=== PATIENT | male | born 1960 | race African-American/Black ===

== ENCOUNTER 2018-07-25 01:17 | Emergency (ER) | payer MEDICAID | END 2018-07-25 01:40 | disposition left against medical advice (07) | LOC: ER 01:17 | DX: R68.89 Other general symptoms and signs (principal); Z53.21 Procedure and treatment not carried out due to patient leaving prior to being seen by health care provider ==

== ENCOUNTER 2018-11-22 00:30 | Emergency (ER) | payer MEDICAID ==
[~2018-11-22] VITALS: Ht 175.3 cm; Wt 78.0 kg
[2018-11-22 00:33] VITALS: BP 123/84
== END 2018-11-22 02:10 | disposition left against medical advice (07) ==
LOC: EDBD → ER 00:30
DX: Z53.21 Procedure and treatment not carried out due to patient leaving prior to being seen by health care provider (principal)

== ENCOUNTER 2018-11-22 03:06 | Emergency (ER) | payer MEDICAID | END 2018-11-22 03:42 | disposition left against medical advice (07) | LOC: EDBD → ER 03:06 | DX: Z53.21 Procedure and treatment not carried out due to patient leaving prior to being seen by health care provider (principal) ==

== ENCOUNTER 2018-11-22 04:34 | Emergency (ER) | payer SELFPAY | END 2018-11-22 05:43 | disposition left against medical advice (07) | LOC: ER 04:34 | DX: Z53.21 Procedure and treatment not carried out due to patient leaving prior to being seen by health care provider (principal) ==